=== PATIENT | male | born 1990 | race Two or more races ===

== ENCOUNTER 2020-11-07 16:16 | Outpatient (REF) | payer OTHER, SELFPAY ==
[2020-11-07 17:57] LABS: Hematocrit 41.7 % (42-52); Hemoglobin 14.2 g/dl (14.0-18.0); Mean Corpuscular HGB Conc 34.1 g/dl (31.0-36.0); Mean Corpuscular Hemoglobin 31.3 pg (27.0-33.0); Mean Corpuscular Volume 91.9 fL (80-98); Mean Platelet Volume 9.8 fL (9.4-12.4); Platelet Count 233 X10*3/uL (160-400); Red Blood Count 4.54 X10*6/uL (4.60-5.80); Red Cell Distribution Width 12.3 % (11.0-16.0); White Blood Count 6.9 X10*3/uL (4.8-10.8)
[2020-11-07 18:09] LABS: Glucose Urine UA NEG (NEG); Leukocyte Esterase Urine NEG (NEG); Nitrite Urine NEG (NEG); Urine Blood 1+ (NEG); Urine Ketones NEG (NEG); Urine Protein NEG (NEG-TRACE)
[2020-11-07 18:10] LABS: Appearance Urine CLEAR; Color Urine YELLOW
[2020-11-07 18:20] LABS: RBC Urine 0-2 /HPF (0); Squamous Epithelial Cell Urine TRACE /LPF; WBC Urine 0 /HPF (0-4)
[2020-11-07 18:22] LABS: Alanine Aminotransferase 20 U/L (0-40); Albumin Level 4.4 g/dL (3.5-5.0); Alkaline Phosphatase 58 U/L (39-117); Anion Gap 14 (12-20); Aspartate Amino Transferase 19 U/L (5-37); Bilirubin Direct 0.2 mg/dL (0.0-0.5); Bilirubin Total 0.4 mg/dL (0.0-1.0); Blood Urea Nitrogen 14 mg/dL (9-16); Calcium 9.1 mg/dL (8.4-10.2); Carbon Dioxide 27 mmol/L (22-29); Chloride 103 mmol/L (96-108); Cholesterol 226 mg/dL; Estimated Glomerular Filt Rate > 60; Glucose Random 107 mg/dL (60-115); HDL Cholesterol 66 mg/dL; LDL Cholesterol Calculated 124 mg/dl; Potassium 4.4 mmol/L (3.3-5.1); Sodium 140 mmol/L (135-145); Total Protein 7.4 g/dL (6.5-8.0); Triglycerides 183 mg/dL
[2020-11-07 18:44] LABS: Thyroid Stimulating Hormone 0.83 uIU/mL (0.32-4.0)
[2020-11-08 10:15] LABS: HIV AB/AG Nonreactive (Nonreactive); HIV Num 1 0.18 S/CO (0.00-0.99)
[2020-11-15 17:22] LABS: Treponema pallidum Ab FTA ABS Nonreactive (Nonreactive)
== END 2020-11-07 16:17 | disposition home or self-care (01) ==
LOC: HO.LAB 16:16
PROVIDERS: PCP Internal Medicine; Visit Provider Internal Medicine
DX: Z00.00 Encounter for general adult medical examination without abnormal findings (principal); Z11.4 Encounter for screening for human immunodeficiency virus [HIV]; J40 Bronchitis, not specified as acute or chronic
CPT/HCPCS: 36415; 80048; 80061; 80076; 81001; 84443; 85027; 86780; 87389

== ENCOUNTER 2022-05-29 09:51 | Outpatient (REF) | payer BC, SELFPAY ==
[2022-05-29 10:27] LABS: Hematocrit 42.9 % (42.0-52.0); Hemoglobin 14.6 g/dl (14.0-18.0); Mean Corpuscular Hemoglobin 31.5 pg (27.0-33.0); Mean Corpuscular Volume 92.5 fL (80.0-98.0); Mean Platelet Volume 9.3 fL (9.4-12.4); Platelet Count 220 X10*3/uL (160-400); Red Blood Count 4.64 X10*6/uL (4.60-5.80); Red Cell Distribution Width 12.2 % (11.0-16.0); White Blood Count 8.3 X10*3/uL (4.8-10.8)
[2022-05-29 11:41] LABS: Alanine Aminotransferase 25 U/L (0-40); Albumin Level 4.5 g/dL (3.5-5.0); Alkaline Phosphatase 53 U/L (39-117); Anion Gap 14 (12-20); Aspartate Amino Transferase 18 U/L (5-37); Bilirubin Total 0.7 mg/dL (0.0-1.0); Blood Urea Nitrogen 12 mg/dL (9-16); Calcium 9.4 mg/dL (8.4-10.2); Carbon Dioxide 26 mmol/L (22-29); Chloride 105 mmol/L (96-108); Cholesterol 197 mg/dL; Estimated Glomerular Filt Rate > 60; Glucose Random 96 mg/dL (60-115); HDL Cholesterol 65 mg/dL; LDL Cholesterol Calculated 116 mg/dl; Potassium 4.5 mmol/L (3.3-5.1); Sodium 140 mmol/L (135-145); Total Protein 7.6 g/dL (6.5-8.0); Triglycerides 82 mg/dL
[2022-05-29 11:42] LABS: TSH reflex Free T4 1.47 uIU/mL (0.32-4.0); Vitamin D 25-OH Total 26.7 ng/mL (>30)
[2022-05-30 06:45] LABS: Syphilis Screen Nonreactive (Nonreactive)
[2022-05-30 08:13] LABS: HIV AB/AG Nonreactive (Nonreactive); HIV Num 1 0.09 S/CO (0.00-0.99)
== END 2022-05-29 09:52 | disposition home or self-care (01) ==
LOC: HO.LAB 09:51
PROVIDERS: PCP Internal Medicine; Visit Provider Nurse Practitioner Family
DX: Z13.21 Encounter for screening for nutritional disorder (principal); Z13.29 Encounter for screening for other suspected endocrine disorder; Z11.9 Encounter for screening for infectious and parasitic diseases, unspecified; Z13.220 Encounter for screening for lipoid disorders; Z13.1 Encounter for screening for diabetes mellitus; Z13.0 Encounter for screening for diseases of the blood and blood-forming organs and certain disorders involving the immune mechanism
CPT/HCPCS: 36415; 80053; 80061; 82306; 84443; 85027; 86780; 87389

== ENCOUNTER 2024-02-03 15:41 | Outpatient (AMB) | payer BC, SELFPAY ==
--- NOTE | 2024-02-03 15:45 | A.OFFPC_ITS ---
Vital Signs 02/03/24 15:47 Height 6 ft Weight 228 lb 6 oz BMI 31.0 BP 130/70 Blood Pressure Location Lt brachial Position Sitting Pulse 86 Pulse Source Pulse Oximeter Pulse Oximetry (%) 99 Oxygen Delivery Method Room Air Intake Visit Reasons: PE Overdue Intake Note: Patient is here today for a physical. Game Warden Required: No Check Writer Salesperson: Not Required per policy Accompanied by: Self / Same As Patient Allergies No Known Allergies [No Known Allergies*] Allergy (Verified 02/03/24 16:09) Medication List - Last Reconciled 02/03/24 by Darin Braun MD albuterol sulfate 90 mcg/actuation 1 inh inhalation Q4-6H PRN ascorbic acid (vitamin C) 500 mg PO DAILY budesonide-formoterol 80-4.5 mcg/actuation (Symbicort) 1 inh inhalation BID loratadine (Allergy Relief (loratadine)) 10 mg PO DAILY multivitamin (Daily Multi-Vitamin tablet) 1 tab PO DAILY vitamin D3-folic acid 500 unit- 1 mg 1 tab PO DAILY Tobacco use date assessed: 02/03/24 Dental Screening Dental Screen Date: 02/03/24 Did you have a dental visit in the last 12 months?: Yes Did you have a dental problem in the last 6 months where you did not have access to dental care?: No Was dental information given to patient?: Patient has dentist HPI PE Overdue HPI Details 33-year-old male presents to the office requesting an annual physical. [facility] Medical History Vitamin D deficiency Bronchitis Surgical History History of undescended testicle History of cholecystectomy Family History Father Chronic mental illness Social History Housing: Apartment Alcohol intake: current Alcohol intake frequency: a few times a month Patient Tobacco Use Status: Never used Tobacco e-Cigarette/Vaping Use: Never Used Second Hand Smoke Exposure: No Substance Use Type: Marijuana service: No Current occupational status: employed Cognitive needs: No Hearing needs: No Vision needs: No Questionnaire PHQ-9 Over the last 2 weeks, how often have you been bothered by any of the following problems? 1. Little interest or pleasure in doing things: not at all 2. Feeling down, depressed, or hopeless: not at all 3. Trouble falling or staying asleep, or sleeping too much: not at all 4. Feeling tired or having little energy: not at all 5. Poor appetite or overeating: not at all 6. Feeling bad about yourself - or that you are a failure or have let yourself or your family down: not at all 7. Trouble concentrating on things, such as reading the newspaper or watching television: not at all 8. Moving or speaking so slowly that other people could have noticed. Or the opposite - being so fidgety or restless that you have been moving around a lot more than usual: not at all 9. Thoughts that you would be better off or of hurting yourself in some way: not at all Total score: 0 Depression Screening Interpretation: Negative Depression Screening Done: Yes Source: Developed by Drs. Kiko Lance, Mena Jeronimo, Imtiaz Bloom and colleagues, with an educational timothy from [employer]. Thrive Questionnaire Date Thrive assessed: 02/03/24 I am a: Patient What is your living situation today?: I have a steady place to live Within the past 12 months, did the food you bought not last and you didn't have the money to get more?: I choose not to answer this question Within the past 12 months, did you worry whether your food would run out before you got money to buy more?: I choose not to answer this question Do you have trouble paying for medicines?: No Do you have trouble getting transportation to medical appointments?: No Do you have trouble paying your heating and electricity bill?: No Do you have trouble taking care of your child, family member or friend?: No Do you have trouble with day-to-day activities such as bathing, preparing meals, shopping, managing finances, etc.?: No Are you currently unemployed and looking for a job?: No Are you interested in more education?: No Please select the resources that you would like help with: Utilities Currently or been in a relationship where the following occur: No concerns re ported THRIVE Score: 0 AUDIT C Alcohol Use Questionnaire (AUDIT-C) 1. How often do you have a drink containing alcohol?: Monthly or less 2. How many drinks containing alcohol do you have on a typical day when you are drinking?: 1 or 2 3. How often do you have six or more drinks on one occasion?: Less than monthly Total Score: 2 ADDI-7 AMB Questionnaire ADDI-7 Date ADDI - 7 assessed: 02/03/24 Feeling nervous, anxious, or on edge: 1 = Several days Not being able to stop or control worryin = Several days Worrying too much about different things: 1 = Several days Trouble relaxin = Not at all Being so restless that it is hard to sit still: 1 = Several days Becoming easily annoyed or irritable: 0 = Not at all Feeling afraid as if something awful might happen: 2 = More than half the days Total ADDI-7 score (0-4 normal; 5-9 mild; 10-14 moderate; 15-21 severe): 6 Source: Developed by Drs. Kiko Lance, Mena Jeronimo, Imtiaz Bloom and colleagues, with an educational timothy from [employer]. Physical exam (Primary Care) Vital Signs: Last Vital Signs Pulse 86 02/03/24 15:47 BP 130/70 02/03/24 15:47 Pulse Ox 99 02/03/24 15:47 Oxygen Delivery Method Room Air 02/03/24 15:47 BMI result Body Mass Index 31.0 Tobacco/Smoking Status: Tobacco use Status Tobacco use date assessed 02/03/24 02/03/24 15:47 Patient Tobacco Use Status Never used Tobacco 02/03/24 15:56 e-Cigarette/Vaping Use Never Used 02/03/24 15:56 PHQ-9: PHQ-9 Score PHQ-9: Total score 0 02/03/24 15:47 Depression Screening Interpretation: Negative Thrive Assessment: Date of Thrive Assessment Date Thrive assessed 02/03/24 02/03/24 15:47 Currently or been in a relationship where the following occur: No concerns reported Const General: cooperative and healthy appearing Nutritional Appearance: well nourished Orientation/consciousness: patient oriented x3 Limitations: no limitations HENMT Head: Yes normal to inspection Eyes General: appearance normal, both eyes and all related structures Neck Neck: Yes normal visual inspection Chest Chest palpation & inspection: normal palpation of entire chest wall Resp Effort & Inspection: normal respiratory effort Neuro General: patient oriented x3 Assessment and Plan Assessment & Plan (1) Annual physical exam: Code(s): Z00.00 - Encounter for general adult medical examination without abnormal findings Plan: Blood work ordered. Will call with results. Coding Level of Care Code Est Pt Prev Care 18-39y(56833) Diagnoses Annual physical exam Z00.00
[2024-02-03 15:47] VITALS: BP 130/70; PULSE 86; O2SAT 99; BMI 31.0
== END 2024-02-03 16:12 | disposition home or self-care (01) ==
PROVIDERS: PCP Internal Medicine; Visit Provider Internal Medicine
DX: Z00.00 Encounter for general adult medical examination without abnormal findings (principal)

== ENCOUNTER → 2024-02-03 15:41 | Outpatient (BNVA) | payer BC, SELFPAY | PROVIDERS: PCP Internal Medicine; Visit Provider Internal Medicine | DX: Z00.00 Encounter for general adult medical examination without abnormal findings (principal) | CPT/HCPCS: 96127 ==

== ENCOUNTER 2024-02-04 11:15 | Outpatient (REF) | payer BC, SELFPAY ==
[2024-02-04 12:03] LABS: Hematocrit 42.8 % (42.0-52.0); Hemoglobin 14.6 g/dl (14.0-18.0); Mean Corpuscular HGB Conc 34.1 g/dl (31.0-36.0); Mean Corpuscular Hemoglobin 31.2 pg (27.0-33.0); Mean Corpuscular Volume 91.5 fL (80.0-98.0); Mean Platelet Volume 9.4 fL (9.4-12.4); Platelet Count 248 X10*3/uL (160-400); Red Blood Count 4.68 X10*6/uL (4.60-5.80); Red Cell Distribution Width 12.1 % (11.0-16.0); White Blood Count 5.5 X10*3/uL (4.8-10.8)
[2024-02-04 12:17] LABS: Appearance Urine Clear; Color Urine Yellow; Glucose Urine UA Negative (Negative); Leukocyte Esterase Urine Negative (Negative); Nitrite Urine Negative (Negative); PH 6.5 (5.0-9.0); Specific Gravity - Urine 1.025 (1.005-1.025); UMIC TRIGGER UA YES; Urine Blood Moderate (2+) (Negative); Urine Ketones Negative (Negative); Urine Protein Negative (Neg-Trace)
[2024-02-04 12:23] LABS: Bacteria Urine None Seen (None Seen); Hyaline Casts Urine 0-2 /LPF (0-2); Squamous Epithelial Cell Urine 0-2 /HPF (0-2); WBC Urine 0-5 /HPF (0-5)
[2024-02-04 12:46] LABS: Alanine Aminotransferase 32 U/L (0-40); Albumin Level 4.5 g/dL (3.5-5.0); Alkaline Phosphatase 53 U/L (39-117); Anion Gap 11 (12-20); Aspartate Amino Transferase 21 U/L (5-37); Bilirubin Direct 0.2 mg/dL (0.0-0.5); Bilirubin Total 0.6 mg/dL (0.0-1.0); Blood Urea Nitrogen 17 mg/dL (9-16); Calcium 9.6 mg/dL (8.4-10.2); Carbon Dioxide 30 mmol/L (22-29); Chloride 105 mmol/L (96-108); Cholesterol 204 mg/dL (<200); Estimated Glomerular Filt Rate > 60; Glucose Random 93 mg/dL (60-115); HDL Cholesterol 53 mg/dL (>40); LDL Cholesterol Calculated 127 mg/dL (<100); Potassium 4.6 mmol/L (3.3-5.1); Sodium 141 mmol/L (135-145); Triglycerides 122 mg/dL (<150)
[2024-02-04 13:02] LABS: Thyroid Stimulating Hormone 1.47 uIU/mL (0.32-4.0)
== END 2024-02-04 11:16 | disposition home or self-care (01) ==
LOC: HO.LAB 11:15
PROVIDERS: PCP Internal Medicine; Visit Provider Internal Medicine
DX: Z00.00 Encounter for general adult medical examination without abnormal findings (principal)
CPT/HCPCS: 36415; 80048; 80061; 80076; 81001; 84443; 85027

== ENCOUNTER 2024-02-21 09:51 | Outpatient (REF) | payer BC, SELFPAY ==
[2024-02-21 11:34] LABS: Appearance Urine Clear; Color Urine Yellow; Glucose Urine UA Negative (Negative); Leukocyte Esterase Urine Negative (Negative); Nitrite Urine Negative (Negative); PH 5.5 (5.0-9.0); Urine Blood Negative (Negative); Urine Ketones Negative (Negative); Urine Protein Negative (Neg-Trace)
== END 2024-02-21 09:52 | disposition home or self-care (01) ==
LOC: HO.LAB 09:51
PROVIDERS: PCP Internal Medicine; Visit Provider Internal Medicine
DX: R31.9 Hematuria, unspecified (principal)
CPT/HCPCS: 81003

== ENCOUNTER 2025-02-18 16:02 | Outpatient (AMB) | payer BC, SELFPAY ==
--- OUTSIDE RECORDS SUMMARY | 2024-06-04 05:30 | XMS_ITS ---
Author Organization [facility] Address [address] [place] [phone] Care Team Providers Care Sugar Cane Planter Machine Operator Name Role Phone Darin Braun Primary Care Provider Kelly Camejo [phone] Encounters Encounter Location Date Provider Diagnosis [address] [address] 06/04/2024 Kelly Camejo Plan Of Treatment Next Appt Details Provider Name:Kelly Yin Bashir , 02/23/2025 01:00:00 PM, [address] [place], [address], Progress Notes * Maxi TRUJILLO EDOB:[birth year] (34 yo M)Acc No.[id number]:06/04/2024 Progress Notes Patient: Annamaria Maxi HALL Provider: Елена Camejo DPM :1990 A ge:33 Y S ex:Male Date:06/04/2024 Address:[address] [place], [place] [id number] Pcp:Darin Braun Subjective: * Chief Complaints: * [...] 0 06/04/2024 Generated for Shaheen Urrutia/Marychuy on: 1 04:57 PM EDT
--- NOTE | 2025-02-18 16:05 | A.OFFPC_ITS ---
Vital Signs 02/18/25 16:06 Height 6 ft Weight 243 lb 6 oz BMI 33.0 BP 134/82 Blood Pressure Location Lt brachial Position Sitting Pulse 85 Pulse Source Pulse Oximeter Temp 97.5 F Temp Source Temporal Artery Scan Pulse Oximetry (%) 98 Oxygen Delivery Method Room Air Intake Visit Reasons: Annual Exam Allergies No Known Allergies (No Known Allergies*) Allergy (Verified 02/18/25 16:09) Medication List - Last Reconciled 02/18/25 by Chris Randolph MD albuterol sulfate 90 mcg/actuation 1 inh inhalation Q4-6H PRN ascorbic acid (vitamin C) 500 mg PO DAILY budesonide-formoterol 80-4.5 mcg/actuation (Symbicort) 1 inh inhalation BID [GUT HEalth TURMERIC and pylopass] loratadine (Allergy Relief (loratadine)) 10 mg PO DAILY multivitamin (Daily Multi-Vitamin tablet) 1 tab PO DAILY vitamin D3-folic acid 500 unit- 1 mg 1 tab PO DAILY Tobacco use date assessed: 02/18/25 Dental Screening Dental Screen Date: 02/18/25 Did you have a dental visit in the last 12 months?: Yes Did you have a dental problem in the last 6 months where you did not have access to dental care?: No Was dental information given to patient?: Patient has dentist HPI Annual Exam HPI Details feels like GERD [facility] Medical History Vitamin D deficiency Bronchitis Surgical History History of undescended testicle History of cholecystectomy Family History (Updated 02/18/25 @ 16:50 by Chris Randolph MD) Father Chronic mental illness Maternal Grandfather Heart failure Maternal Aunt Thyroid cancer Paternal Grandfather Esophageal cancer Social History (Updated 02/18/25 @ 16:51 by Chris Randolph MD) Housing: Apartment Alcohol intake: current Alcohol intake frequency: a few times a month Comment: once a month 2cups Patient Tobacco Use Status: Never used Tobacco Years Smoked: edible e-Cigarette/Vaping Use: Never Used Second Hand Smoke Exposure: No Substance Use Type: Marijuana service: No Current occupational status: employed Cognitive needs: No Hearing needs: No Vision needs: No Questionnaire PHQ-9 Over the last 2 weeks, how often have you been bothered by any of the following problems? 1. Little interest or pleasure in doing things: not at all 2. Feeling down, depressed, or hopeless: not at all 3. Trouble falling or staying asleep, or sleeping too much: not at all 4. Feeling tired or having little energy: not at all 5. Poor appetite or overeating: not at all 6. Feeling bad about yourself - or that you are a failure or have let yourself or your family down: not at all 7. Trouble concentrating on things, such as reading the newspaper or watching television: not at all 8. Moving or speaking so slowly that other people could have noticed. Or the opposite - being so fidgety or restless that you have been moving around a lot more than usual: not at all 9. Thoughts that you would be better off or of hurting yourself in some way: not at all Total score: 0 Depression Screening Interpretation: Negative Depression Screening Done: Yes 14170 - PHQ-9 Billing: Yes Source: Developed by Drs. Kiko Lance, Mena Jeronimo, Imtiaz Bloom and colleagues, with an educational timothy from [employer]. Thrive Questionnaire Date Thrive assessed: 02/11/25 I am a: Patient What is your living situation today?: I have a steady place to live Within the past 12 months, did the food you bought not last and you didn't have the money to get more?: Sometimes True Within the past 12 months, did you worry whether your food would run out before you got money to buy more?: Sometimes True Do you have trouble paying for medicines?: No Do you have trouble getting transportation to medical appointments?: No Do you have trouble paying your heating and electricity bill?: No Do you have trouble taking care of your child, family member or friend?: No Do you have trouble with day-to-day activities such as bathing, preparing meals, shopping, managing finances, etc.?: No Are you currently unemployed and looking for a job?: No Are you interested in more education?: No Please select the resources that you would like help with: None Currently or been in a relationship where the following occur: I choose not to answer THRIVE Score: 2 AUDIT C Alcohol Use Questionnaire (AUDIT-C) 1. How often do you have a drink containing alcohol?: Monthly or less 2. How many drinks containing alcohol do you have on a typical day when you are drinking?: 1 or 2 3. How often do you have six or more drinks on one occasion?: Never Total Score: 1 ADDI-7 AMB Questionnaire ADDI-7 Date ADDI - 7 assessed: 02/18/25 Feeling nervous, anxious, or on edge: 1 = Several days Not being able to stop or control worryin = Several days Worrying too much about different things: 1 = Several days Trouble relaxin = Not at all Being so restless that it is hard to sit still: 1 = Several days Becoming easily annoyed or irritable: 0 = Not at all Feeling afraid as if something awful might happen: 2 = More than half the days Total ADDI-7 score (0-4 normal; 5-9 mild; 10-14 moderate; 15-21 severe): 6 Source: Developed by Drs. Kiko Lance, Mena Jeronimo, Imtiaz Bloom and colleagues, with an educational timothy from [employer]. ADDI-7 Assessment Billing ADDI-7 Assessment Tool: ADDI-7 Assessment 42697 Review of Systems Const Denies poor appetite and Denies weakness Eyes Denies no additional complaints ENT Reports Normal hearing present, Denies dizziness, Denies nasal congestion, Denies tinnitus and Denies sore throat Card Denies chest pain, Denies syncope, Denies rapid heart rate and Denies dyspnea Resp Denies cough and Denies dyspnea GI Denies change in stool character, Reports constipation, Denies diarrhea, Denies nausea and Denies vomiting Denies dysuria and Denies urinary frequency Neuro Reports Normal hearing present, Denies confusion, Denies dizziness, Denies syncope and Denies weakness Psych Denies confusion Physical exam (Primary Care) Vital Signs: Last Vital Signs Temp 97.5 F 02/18/25 16:06 Pulse 85 02/18/25 16:06 BP 134/82 02/18/25 16:06 Pulse Ox 98 02/18/25 16:06 Oxygen Delivery Method Room Air 02/18/25 16:06 BMI result Body Mass Index 33.0 Tobacco/Smoking Status: Tobacco use Status Tobacco use date assessed 02/18/25 02/18/25 16:10 Patient Tobacco Use Status Never used Tobacco 02/18/25 16:51 e-Cigarette/Vaping Use Never Used 02/18/25 16:51 PHQ-9: PHQ-9 Score PHQ-9: Total score 0 02/18/25 16:42 Depression Screening Interpretation: Negative Thrive Assessment: Date of Thrive Assessment Date Thrive assessed 02/11/25 02/18/25 16:10 Currently or been in a relationship where the following occur: I choose not to answer Const General: No confusion Orientation/consciousness: No confusion HENMT Head: Yes normocephalic Ears: external ears normal and TM's normal bilaterally Face and sinus: Yes normal facial exam Mouth: moist mucous membranes Throat: Yes tonsils normal Eyes Conjunctivae: conjunctivae normal Pupils: Equal, round and reactive pupils present and Pupil accommodation reflex normal Direct Ophthalmoscopy: normal light reflex Neck Neck: No lymphadenopathy Thyroid: Thyroid normal Chest Chest palpation & inspection: normal inspection of the chest Resp Effort & Inspection: normal respiratory effort and no audible wheezes Auscultation: clear to auscultation bilaterally, no crackles, no wheezes and lung sounds not diminished Cardio Rate: regular rate Rhythm: regular rhythm Peripheral pulses: radial pulses present and dorsalis pedis present GI Palpation (GI): no masses Auscultation: normal bowel sounds and normoactive bowel sounds Rectal Exam - Male: Yes deferred Skin General skin exam: no rashes or lesions noted Rashes: no rashes Neuro General: No confusion Cranial nerves: Yes Equal, round and reactive pupils present and Yes Normal hearing present Cognition (Neuro): normal cognition Gait exam (Neuro): Normal gait present Motor exam (neuro): 5/5 motor strength present throughout Deep tendon reflexes (DTR's): Right brachioradialis reflex intensity grade: 2+, Left brachioradialis reflex intensity grade: 2+, Right patellar reflex intensity grade: 2+ and Left patellar reflex intensity grade: 2+ Extrem General: No edema Coding Level of Care Code Est Pt Prev Care 18-39y(04185) Diagnoses Annual physical exam Z00.00 Obesity (BMI 30-39.9) E66.9 Asthma J45.909 GERD (gastroesophageal reflux disease) K21.9 Hypersomnia G47.10 Left ankle pain M25.572 Multiple nevi D22.9 Additional Codes ADDI-7 Assessment Billing - ADDI-7 Assessment Tool: ADDI-7 Assessment 91157 ([id number]) PHQ-9 - 57389 - PHQ-9 Billing: Yes ([id number]) Assessment & Plan Assessment & Plan (1) Annual physical exam: Code(s): Z00.00 - Encounter for general adult medical examination without abnormal findings Category: Medical Plan: Patient is advised to eat healthy, keep well hydrated, keep active and have adequate sleep. (2) Obesity (BMI 30-39.9): Code(s): E66.9 - Obesity, unspecified Category: Medical Plan: Diet and exercise (3) Asthma: Code(s): J45.909 - Unspecified asthma, uncomplicated Category: Medical (4) GERD (gastroesophageal reflux disease): Code(s): K21.9 - Gastro-esophageal reflux disease without esophagitis Category: Medical (5) Hypersomnia: Code(s): G47.10 - Hypersomnia, unspecified Category: Medical (6) Left ankle pain: Code(s): M25.572 - Pain in left ankle and joints of left foot Category: Medical (7) Multiple nevi: Code(s): D22.9 - Melanocytic nevi, unspecified Category: Medical Plan History of Present Illness The patient is a 34-year-old male presenting for a physical examination and review of health concerns including obesity, asthma, and gastroesophageal reflux disease. The patient reports a weight gain of 15 pounds over the past year despite engaging in intermittent fasting and exercise. He has a history of asthma managed with albuterol and Symbicort, and he reports no recent exacerbations. The patient experiences symptoms of gastroesophageal reflux disease, including a sensation of food getting stuck and persistent throat clearing, which have improved with dietary supplements. He follows dietary modifications to manage reflux symptoms. The patient suspects sleep apnea due to symptoms of excessive daytime sleepiness and snoring, and a sleep study has been recommended. He has a history of left ankle tendonitis, with pain exacerbated by physical activity, and plans to discuss this with his medical doctor. Family history is significant for heart disease and cancer, including heart failure in his maternal grandfather and thyroid cancer in his maternal aunt. Health Maintenance - Blood work to assess current health status - GI series to evaluate gastroesophageal reflux disease - Sleep study to assess for sleep apnea - Dermatology referral for evaluation of a changing mole - Vaccinations: Flu shot planned before November Social History - Substance use: Consumes alcohol socially, approximately once a month, and uses cannabis edibles occasionally. - Exercise: Engages in physical activity but reports challenges due to left ankle tendonitis. - Diet: Practices intermittent fasting and follows dietary modifications for reflux management. Review of Systems - General: Reports weight gain of 15 pounds over the past year. - Respiratory: Reports asthma, denies recent exacerbations. - Gastrointestinal: Reports symptoms of gastroesophageal reflux disease, including sensation of food getting stuck and persistent throat clearing. - Neurological: Reports excessive daytime sleepiness and snoring, suspecting sleep apnea. - Musculoskeletal: Reports left ankle pain exacerbated by physical activity. Physical Exam General: Cooperative, healthy appearing, comfortable, no acute distress and well developed Orientation: Patient oriented x3 Limitations: No limitations Head: Normal to inspection Ears: Hearing grossly normal bilaterally Nose: Normal external nose present Face and sinus: Normal facial exam Eyes: Appearance normal, both eyes and all related structures Neck: Normal visual inspection and Yes full ROM Respiratory: Normal respiratory effort and able to speak in complete sentences. Clear to auscultation bilaterally Cardiovascular: Regular rate and rhythm. Normal S1 and S2 GI: Normal to inspection. Soft to palpation and nontender Skin: No rashes or lesions noted Neuro: Patient oriented x3 Extremities: Normal to inspection, except for left ankle with history of ligament injury and current tension noted. Results - Labs: Blood work from last year showed normal blood count, electrolytes, renal function, blood sugar, liver function, cholesterol, and thyroid levels. Plan Patient was informed and verbally consented to the use of an ambient scribe for clinic note documentation during this visit. 1. Obesity The patient has gained 15 pounds over the past year despite engaging in intermi ttent fasting and exercise. A comprehensive plan including dietary modifications and increased physical activity was discussed to address weight management. 2. Asthma The patient's asthma is currently managed with albuterol and Symbicort, with no recent exacerbations reported. The importance of medication adherence and monitoring for symptoms was emphasized. 3. Gastroesophageal Reflux Disease (Gerd) The patient experiences symptoms of GERD, which have improved with dietary supplements and lifestyle modifications. A GI series was recommended to further evaluate the condition, and a trial of Prilosec was prescribed. 4. Sleep Apnea The patient suspects sleep apnea due to symptoms of excessive daytime sleepiness and snoring. A sleep study was ordered to confirm the diagnosis and guide management. 5. Tendonitis Of The Left Ankle The patient reports left ankle pain exacerbated by physical activity, consistent with tendonitis. He plans to discuss this with his medical doctor and consider further imaging if necessary. Discussion Notes During the visit, we discussed the patient's weight gain and the importance of lifestyle modifications, including diet and exercise, to manage obesity. We reviewed the patient's asthma management plan, emphasizing the need for medication adherence and monitoring for symptoms. For gastroesophageal reflux disease, we discussed dietary modifications and prescribed a trial of Prilosec, with a GI series recommended for further evaluation. A sleep study was ordered to assess for sleep apnea, and the patient was advised on the potential implications of untreated sleep apnea on cardiovascular health. We also addressed the patient's left ankle tendonitis, recommending a discussion with his medical doctor and potential imaging if symptoms persist. Patient Instructions - Follow the recommended diet and exercise plan to manage weight. - Continue using asthma medications as prescribed and monitor for symptoms. - Take Prilosec as prescribed for gastroesophageal reflux disease and follow dietary modifications. - Complete the sleep study to assess for sleep apnea. - Discuss left ankle pain with your medical doctor and consider imaging if necessary. - Schedule a dermatology appointment for evaluation of the changing mole. Orders: Orders RT home sleep study Today G47.10 - Hypersomnia, unspecified Comprehensive Met. Panel Today E66.9 - Obesity, unspecified Lipid Panel Today E66.9 - Obesity, unspecified, E78.00 - Pure hypercholesterolemia, unspecified Vitamin B12 and Folate Today E66.9 - Obesity, unspecified Hemoglobin A1c Today E66.9 - Obesity, unspecified FL upper GI series Today K21.9 - Gastro-esophageal reflux disease without esophagitis, R13.10 - Dysphagia, unspecified XR ankle LT 2V Today M25.572 - Pain in left ankle and joints of left foot Complete Blood Count Auto Diff Today E66.9 - Obesity, unspecified Free T4 (Free Thyroxine) Today E66.9 - Obesity, unspecified Thyroid Stimulating Hormone Today E66.9 - Obesity, unspecified UA CC w/rflx Micro + Cult Today E66.9 - Obesity, unspecified, R30.0 - Dysuria Referrals Dermatology Referral D22.9 - Melanocytic nevi, unspecified Medications: New omeprazole 20 mg PO DAILY 30 caps 0RF K21.9 - Gastro-esophageal reflux disease without esophagitis
[2025-02-18 16:06] VITALS: BP 134/82; PULSE 85; TEMP 36.4; O2SAT 98; BMI 33.0
--- OUTSIDE RECORDS SUMMARY | 2025-02-18 16:58 | XMS_ITS | Patient Health Record ---
[facility] Rachana Garcialey Address [address] [place] [address] Care Team Providers Care Drafting Clerk Name Role Phone Darin Braun Primary Care Provider Kelly Camejo Unavailable [phone] Allergies No Known Allergies Reason For Referral Diagnosis 1 Pain in unspecified foot (M79.673) Referring Provider First Name Darin Referring Provider Last Name Kade Referring Provider Speciality Internal M edicine [facility] Referred Provider Kelly Camejo Referred Address [address] [facility] [address] ,[place], [place],[address], Referred Provider Specialty Podiatry Referral Priority Routine Medications Medication SIG (Take, Route, Frequency, Duration) Notes Start Date End Date Status Ciclopirox 0.77 % 1 application Sugar Cane Grower ally Once a day; Duration: 30 days Active Albuterol Active Symbicort 80-4.5 MCG/ACT as directed Inhalation Active Social History Tobacco Use: Social History Observation Description Date Details (start date - stop date) Never Smoker NA - NA Tobacco use other than smoking: Question Answer Notes Are you an other tobacco user? Yes Tobacco Control (Standard) Question Answer Notes Tobacco use: Nonsmoker Additional Findings: Tobacco non-user Current no nsmoker AUDIT-C (Standard) Question Answer Notes Did you have a drink contain ing alcohol in the past year? Yes How often did you have a dri nk containing alcohol in the past year? Monthly or less (1 point) How many drinks did you have on a typical day when you were drinking in the past year? 1 or 2 drinks (0 point) How often did you have six o r more drinks on one occasion in the past year? Less than monthly (1 point) Points 2 Interpretation Negative Problems Problem Type SNOMED Code ICD Code Onset Dates Problem Status W/U Status Risk Notes Problem Plantar wart (67257013) Plantar wart (B07.0) Active confirmed Vital Signs Blood pressure diastolic 80 mm Hg 10/20/2024 Height 6ft in 10/20/2024 Blood pressure systolic 120 mm Hg 10/20/2024 Weight 230 lbs 10/20/2024 BMI 31.19 kg/m2 10/20/2024 Procedures Procedure Date Ordered Date Performed Result Body Sit e 48597-Vezx Destruction, 06-0207/21/2024 N/A 33370-Xcnu Destruction, 06-0210/20/2024 N/A Encounters Encounter Location Date Provider Diagnosis [address] [address] 07/21/2024 Kelly Black Right foot pain M79.671 ; Plantar wart B07.0 ; Onychomycosis B35.1 and Pain in left toe(s) M79.[address] [address] 10/20/2024 Kelly Black Right foot pain M79.671 ; Plantar wart B07.0 ; Onychomycosis B35.1 ; Pain in left toe(s) M79.675 and Pain in right toe(s) M79.674 [facility] [address] [place] [address] 05/28/2024 Kelly Black Assessments Encounter Date Diagnosis (ICD Code) Assessment Notes Treatment Notes Treatment Clinical Notes Section Notes 07/21/2024 Right foot pain (ICD-10 - M79.671) 10/20/2024 Right foot pain (ICD-10 - M79.671) 10/20/2024 Onychomycosis (ICD-10 - B35.1) Patient Educated with: FUNGUS NAIL INFECTIONS.pdf (FUNGUS NAIL INFECTIONS.pdf ) 07/21/2024 Plantar wart (ICD-10 - B07.0) 07/21/2024 Onychomycosis (ICD-10 - B35.1) Patient Educated with: FUNGUS NAIL INFECTIONS.pdf (FUNGUS NAIL INFECTIONS.pdf ) 10/20/2024 Plantar wart (ICD-10 - B07.0) 10/20/2024 Pain in left toe(s) (ICD-10 - M79.675) 07/21/2024 Pain in left toe(s) (ICD-10 - M79.675) 10/20/2024 Pain in right toe(s) (ICD-10 - M79.674) Plan Of Treatment Pending Test Test Name Order Date 18180-Lwtc Destruction, 06-0207/21/2024 90336-Yiuc Destruction, 06-0210/20/2024 Next Appt Details Provider Name:Kelly Yin Bashir , 02/23/2025 01:00:00 PM, [address] [facility], [place], [address], Insurance Providers Payer Name Payer Address Payer Phone Subscriber Number Group Number Insured Name Patient Relationship to Insured Coverage Start Date Coverage End Date [facility] [address] [place] [address] [phone] [id number] Maxi Santos Self - patient is the insured Medical (General) History Medical History History ICD Code Anxiety asthma covid-19 Gall bladder removed Warts Surgical History Surgery Date(Month/Year) Gall bladder removal 2006
== END 2025-02-18 17:16 | disposition home or self-care (01) ==
LOC: HO.HMCH 16:02
PROVIDERS: PCP Internal Medicine; Visit Provider Internal Medicine
DX: Z00.00 Encounter for general adult medical examination without abnormal findings (principal); E66.9 Obesity, unspecified; Z68.33 Body mass index [BMI] 33.0-33.9, adult; J45.909 Unspecified asthma, uncomplicated; G47.10 Hypersomnia, unspecified; K21.9 Gastro-esophageal reflux disease without esophagitis; M25.572 Pain in left ankle and joints of left foot; D22.9 Melanocytic nevi, unspecified

== ENCOUNTER → 2025-02-18 16:02 | Outpatient (BNVA) | payer BC, SELFPAY | PROVIDERS: PCP Internal Medicine; Visit Provider Internal Medicine | DX: Z00.00 Encounter for general adult medical examination without abnormal findings (principal); E66.9 Obesity, unspecified; J45.909 Unspecified asthma, uncomplicated; K21.9 Gastro-esophageal reflux disease without esophagitis; G47.10 Hypersomnia, unspecified; M25.572 Pain in left ankle and joints of left foot; D22.9 Melanocytic nevi, unspecified; Z68.33 Body mass index [BMI] 33.0-33.9, adult | CPT/HCPCS: 96127 ==

== ENCOUNTER 2025-02-19 11:01 | Outpatient (REF) | payer BC, SELFPAY ==
--- OUTSIDE RECORDS SUMMARY | 2024-06-04 05:30 | XMS_ITS ---
Author Organization [facility] Address [address] [place] [address] Care Team Providers Care Shallot Packer Name Role Phone aDrin Braun Primary Care Provider [phone] Kelly Camejo [phone] Encounters Encounter Location Date Provider Diagnosis [address] [address] 06/04/2024 Kelly Camejo Plan Of Treatment Next Appt Details Provider Name:Kelly Yin Bashir , 02/23/2025 01:00:00 PM, [address] [place], [address], Progress Notes * Maxi TRUJILLO EDOB:[birth year] (34 yo M)Acc No.[id number]:06/04/2024 Progress Notes Patient: Annamaria Maxi HALL Provider: Елена Camejo DPM :1990 A ge:33 Y S ex:Male Date:06/04/2024 Address:[address] [place], [place] [id number] Pcp:Darin Braun Subjective: * Chief Complaints: * [...] 06/04/2024 Generated for Shaheen Urrutia/Marychuy on: 1 12:19 PM EDT
--- NOTE | ~2025-02-19 | XR_ITS ---
EXAMINATION: XR ANKLE, left CLINICAL INFORMATION: M25.572 - Pain in left ankle and joints of left foot COMPARISON: None available. TECHNIQUE: AP, lateral, and mortise views lower extremity joint, ankle. FINDINGS: Ankle mortise is congruent. There is no widening of the syndesmosis. Talar dome is intact. There are marginal sites involving inferior tip of medial malleolus There are minute calcaneal enthesophyte(s). XR/XR ankle LT 2V IMPRESSION: Small medial malleolar osteophyte. Minute calcaneal spurs. Electronically signed by: Kumar Bird MD 02/19/2025 11:35 AM EDT
[2025-02-19 11:17] LABS: MANUAL DIFF FLAG NO
[2025-02-19 11:58] LABS: Hematocrit 41.7 % (42.0-52.0); Hemoglobin 14.4 g/dl (14.0-18.0); Imm Gran Abs Auto 0.01 X10*3/uL (0.00-0.03); Imm Gran Pct Auto 0.2 % (0.0-0.4); Lymphocytes Absolute Auto 2.2 X10*3/uL (1.2-4.9); Mean Corpuscular HGB Conc 34.5 g/dl (31.0-36.0); Mean Corpuscular Hemoglobin 30.8 pg (27.0-33.0); Mean Corpuscular Volume 89.1 fL (80.0-98.0); NRBC Abs Auto 0.000 X10*3/uL (0.0-0.012); NRBC Pct Auto 0.0 /100WBC (0.0-0.2); Platelet Count 247 X10*3/uL (160-400); Red Blood Count 4.68 X10*6/uL (4.60-5.80); White Blood Count 5.8 X10*3/uL (4.8-10.8)
[2025-02-19 12:06] LABS: Appearance Urine Clear; Glucose Urine UA Negative (Negative); PH 8.0 (5.0-9.0); Specific Gravity - Urine 1.010 (1.005-1.025); UMIC TRIGGER UACC YES
[2025-02-19 12:06] LABS: Total Hemoglobin (HGBA1C) 3768.9405 umol/L
--- OUTSIDE RECORDS SUMMARY | 2025-02-19 12:20 | XMS_ITS | Patient Health Record ---
[facility] R[facility] Address [address] [place] [address] Care Team Providers Care Human Factors Advisor Lead Name Role Phone Darin Braun Primary Care Provider Kelly Camejo Unavailable [phone] Allergies No Known Allergies Reason For Referral Diagnosis 1 Pain in unspecified foot (M79.673) Referring Provider First Name Darin Referring Provider Last Name Kade Referring Provider Speciality Internal M edicine [facility] Referred Provider Kelly Camejo Referred Address [address] [facility] [address] ,[place], [place],[address], Referred Provider Specialty Podiatry Referral Priority Routine Medications Medication SIG (Take, Route, Frequency, Duration) Notes Start Date End Date Status Ciclopirox 0.77 % 1 application Card Runner ally Once a day; Duration: 30 days [...] W/U Status Risk Notes Problem Plantar wart (13172914) Plantar wart (B07.0) Active confirmed Vital Signs Blood pressure diastolic 80 mm Hg 10/20/2024 Height 6ft in 10/20/2024 Blood pressure systolic 120 mm Hg 10/20/2024 Weight 230 lbs 10/20/2024 BMI 31.19 kg/m2 10/20/2024 Procedures Procedure Date Ordered Date Performed Result Body Sit e 43211-Qevk Destruction, 06-0207/21/2024 N/A 65183-Mdte Destruction, 06-0210/20/2024 N/A Encounters Encounter Location Date Provider Diagnosis [address] [address] 07/21/2024 Kelly Black Right foot pain M79.671 ; Plantar wart B07.0 ; Onychomycosis B35.1 and Pain in left toe(s) M79.[address] [address] 10/20/2024 Kelly Black Right foot pain M79.671 ; Plantar wart B07.0 ; Onychomycosis B35.1 ; Pain in left toe(s) M79.675 and Pain in right toe(s) M79.674 [facility] [address] [place] [address] 05/28/2024 Kelly Black Assessments Encounter Date Diagnosis [...] Treatment Pending Test Test Name Order Date [id number]-Rgyh Destruction, 06-0207/21/2024 17612-Vgve Destruction, 06-0210/20/2024 Next Appt Details Provider Name:Kelly Yin Bashir , 02/23/2025 01:00:00 PM, [address] [facility], [place], [address], Insurance Providers Payer Name Payer Address Payer Phone Subscriber Number Group Number Insured Name Patient Relationship to Insured Coverage Start Date Coverage End Date [facility] [address] [place] [address] [phone] [id number] Maxi Santos Self - patient is the insured Medical (General) History Medical History History ICD Code Anxiety asthma covid-19 Gall bladder removed Warts Surgical History Surgery Date(Month/Year) Gall bladder removal 2006
[2025-02-19 12:58] LABS: Folate 13.7 ng/mL (> or = 4.0); Vitamin B12 471 pg/mL (200-900)
[2025-02-19 13:37] LABS: Alanine Aminotransferase 29 U/L (0-40); Albumin Level 4.6 g/dL (3.5-5.0); Alkaline Phosphatase 65 U/L (39-117); Anion Gap 11 (12-20); Aspartate Amino Transferase 27 U/L (5-37); Blood Urea Nitrogen 10 mg/dL (9-16); Calcium 9.0 mg/dL (8.4-10.2); Carbon Dioxide 27 mmol/L (22-29); Chloride 106 mmol/L (96-108); Cholesterol 186 mg/dL (<200); Estimated Glomerular Filt Rate > 60; HDL Cholesterol 48 mg/dL (>40); Potassium 4.1 mmol/L (3.3-5.1); Sodium 140 mmol/L (135-145); Total Protein 7.8 g/dL (6.5-8.0); Triglycerides 144 mg/dL (<150)
[2025-02-19 13:51] LABS: Free T4 (Free Thyroxine) 1.02 ng/dL (0.71-1.85); Thyroid Stimulating Hormone 1.87 uIU/mL (0.32-4.0)
== END 2025-02-19 11:02 | disposition home or self-care (01) ==
LOC: HO.XRAY 11:01
PROVIDERS: PCP Internal Medicine; Visit Provider Internal Medicine
DX: M25.572 Pain in left ankle and joints of left foot (principal); E78.00 Pure hypercholesterolemia, unspecified; E66.9 Obesity, unspecified; Z13.1 Encounter for screening for diabetes mellitus
CPT/HCPCS: 36415; 73600; 80053; 80061; 81001; 81003; 82607; 82746; 83036; 84439; 84443; 85025

== ENCOUNTER → 2025-02-19 11:22 | Outpatient (BNV) | payer BC, SELFPAY | PROVIDERS: PCP Internal Medicine; Visit Provider Radiology Diagnostic Radiology | DX: M25.772 Osteophyte, left ankle (principal) | CPT/HCPCS: 73600 ==

== ENCOUNTER 2025-04-27 14:01 | Outpatient (REF) | payer BC, SELFPAY ==
--- OUTSIDE RECORDS SUMMARY | 2024-06-04 04:30 | XMS_ITS ---
Author Organization [facility] Address [address] [place] [id number] Care Team Providers Care Splicing Technician Name Role Phone Darin Braun Primary Care Provider Kelly Camejo [phone] Encounters Encounter Location Date Provider Diagnosis [address] [address] 06/04/2024 Kelly Camejo Plan Of Treatment Next Appt Details Provider Name:Kelly Yin Bashir , 06/29/2025 01:00:00 PM, 1983 [place], [address], Progress Notes * Maxi TRUJILLO EDOB:[birth year] (34 yo M)Acc No.[id number]:06/04/2024 Progress Notes Patient: Annamaria Maxi HALL Provider: Елена Camejo DPM :1990 A ge:33 Y S ex:Male Date:06/04/2024 Address:[address] [place], [place] [id number] Pcp:Darin Braun Subjective: * Chief Complaints: * * Medical History: Objective: * Vitals: Assessment: Plan: * Treatment: * Images: * The named appointment provid er may or may not be the originator of this progress note, and it is not deemed complete until electronically signed by the appointment provider. Sign off status: Pending * Provider: Елена Camejo DPM Date: 0 06/04/2024 Generated for Shaheen Urrutia/Marychuy on: 06/28/2024 08:00 PM EST
--- NOTE | ~2025-04-27 | US_ITS ---
EXAMINATION: US RETROPERITONEAL COMPLETE (RENAL) CLINICAL INFORMATION: Hematuria, unspecified. R 31.9. COMPARISON: None available. TECHNIQUE: Real-time imaging of the kidneys and bladder. FINDINGS: RIGHT KIDNEY: 11 x 6 x 6 cm (SAG x AP x TRV). Normal echotexture. Renal cortical thickness is normal. No hydronephrosis. No solid or cystic lesion. LEFT KIDNEY: 12 x 6 x 6 cm (SAG x AP x TRV). Normal echotexture. Renal cortical thickness is normal. No hydronephrosis. No solid or cystic lesion. BLADDER: Fluid-filled without gross abnormality. There is no ureteral jet demonstrated. Prevoid bladder volume is 946 mL. Postvoid bladder volume is 19 mL. Prostate gland measures 3 x 3 x 3 cm and volume: 17 cc. US/US retroperitoneal comp IMPRESSION: No hydronephrosis or gross nephrolithiasis. Prostate gland volume: 17 cc. 19 cc residual urine in a post void image.. Electronically signed by: Pablo Monteiro MD 04/27/2025 03:06 PM BILLY SAUL
--- OUTSIDE RECORDS SUMMARY | 2025-04-27 20:01 | XMS_ITS | Patient Health Record ---
[facility] Rachana alexandra Coyote Address [address] [place] [address] Care Team Providers Care Patent Attorney Name Role Phone Darin Braun Primary Care Provider [phone] Kelly Camejo Unavailable [phone] Allergies No Known Allergies Results Component Value Reference Range Notes X ray : Foot, left 3V Reviewed date:02/23/2025 03:55:31 PM Interpretation:See Examination above Performing Lab: Notes/Report: See Examination above X ray : Foot, right 3V Reviewed date:02/23/2025 03:55:22 PM Interpretation:See Examination above Performing Lab: Notes/Report: See Examination above Reason For Referral Diagnosis 1 Pain in unspecified foot (M79.673) Referring Provider First Name Darin Referring Provider Last Name Kade Referring Provider Speciality Internal M edicine [facility] Referred Provider Kelly Camejo Referred Address [address],[place], [place],[address], Referred Provider Specialty Podiatry Referral Priority Routine Medications Medication SIG (Take, Route, Frequency, Duration) Notes Start Date End Date Status Symbicort 80-4.5 MCG/ACT as directed Inhalation Active Ciclopirox 0.77 % 1 application Helpdesk Analyst ally Once a day; Duration: 30 days Active Albuterol Active Omeprazole 20 MG Oral; Duration: 30 Days Active Immunizations Vaccine Route Administration Date Status Comme nts Influenza Unknown 03/04/2024 Administered Social History Tobacco Use: Social History Observation [...] W/U Status Risk Notes Problem Plantar wart (37574091) Plantar wart (B07.0) Active confirmed Vital Signs Blood pressure diastolic 80 mm Hg 02/23/2025 Height 6ft in 02/23/2025 Blood pressure systolic 120 mm Hg 02/23/2025 Weight 230 lbs 02/23/2025 BMI 31.19 kg/m2 02/23/2025 Procedures Procedure Date Ordered Date Performed Result Body Sit e 64231-Daqb Destruction, 1-14 07/21/2024 N/A 50398-Efng Destruction, -10/20/2024 N/A 57517-QCRJHLQ NAIL, 6 OR MORE 02/23/2025 N/A 84668-Taly Destruction, 1-14 02/23/2025 N/A Encounters Encounter [facility] Date [facility] [address] [address] 07/21/2024 Kelly Black Right foot pain M79.671 ; Plantar wart B07.0 ; Onychomycosis B35.1 and Pain in left toe(s) M79.[address] [address] 10/20/2024 Kelly Black Right foot pain M79.671 ; Plantar wart B07.0 ; Onychomycosis B35.1 ; Pain in left toe(s) M79.675 and Pain in right toe(s) M79.[address] [address] 02/23/2025 Kelly Camejo Plantar wart B07.0 ; Peroneal tendinitis, right leg M76.71 ; Right foot pain M79.671 ; Onychomycosis B35.1 ; Pain in left toe(s) M79.675 ; Pain in right toe(s) M79.674 ; Pain in left foot M79.672 ; Hypertrophy of bone, 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 and Peroneal tendinitis of left lower extremity M76.72 [facility] [address] [place] [address] 05/28/2024 Kelly Camejo Assessments Encounter Date Diagnosis (ICD Code) Assessment Notes Treatment Notes Treatment Clinical Notes Section Notes 07/21/2024 Right foot pain (ICD-10 - M79.671) 10/20/2024 Right foot pain (ICD-10 - M79.671) 02/23/2025 Plantar wart (ICD-10 - B07.0) 02/23/2025 Peroneal tendinitis, right leg (ICD-10 - M76.71) 02/23/2025 Right foot pain (ICD-10 - M79.671) 10/20/2024 [...] Pain in left toe(s) (ICD-10 - M79.675) 02/23/2025 Onychomycosis (ICD-10 - B35.1) 02/23/2025 Pain in left toe(s) (ICD-10 - M79.675) 10/20/2024 Pain in right toe(s) (ICD-10 - M79.674) 02/23/2025 Pain in right toe(s) (ICD-10 - M79.674) 02/23/2025 Pain in left foot (ICD-10 - M79.672) 02/23/2025 Hypertrophy of bone, left ankle and foot (ICD-10 - M89.372) 02/23/2025 Peroneal tendinitis of left lower extremity (ICD-10 - M76.72) Patient Educated with: PERONEAL TENDON INJURY REHAB. EXERCISES.pdf (PERONEAL TENDON INJURY REHAB. EXERCISES.pdf) Plan Of Treatment Pending Test Test Name Order Date [id number]-CATCIKQ NAIL, 6 OR MORE 02/23/2025 61558-Jhex Destruction, -07/21/2024 16055-Hrem Destruction, -10/20/2024 66946-Youb Destruction, -02/23/2025 Next Appt Details Provider Name:Kelly Yin Bashir , 06/29/2025 01:00:00 PM, [address] [facility], [place], [address], Insurance Providers Payer Name Payer Address Payer Phone Subscriber Number Group Number Insured Name Patient Relationship to Insured Coverage Start Date Coverage End Date [facility] [address] [place] [address] [id number] Maxi Santos Self - patient is the insured Medical (General) History Medical History History ICD Code Anxiety asthma covid-19 Gall bladder removed Warts Surgical History Surgery Date(Month/Year) Gall bladder removal 2006
== END 2025-04-27 14:02 | disposition home or self-care (01) ==
LOC: HO.US 14:01
PROVIDERS: PCP Internal Medicine; Visit Provider Internal Medicine
DX: R31.9 Hematuria, unspecified (principal)
CPT/HCPCS: 76770

== ENCOUNTER → 2025-04-27 14:05 | Outpatient (BNV) | payer BC, SELFPAY | PROVIDERS: PCP Internal Medicine; Visit Provider Radiology Diagnostic Radiology | DX: R31.9 Hematuria, unspecified (principal) | CPT/HCPCS: 76770 ==